=== PATIENT | female | born 1955 | race Two or more races ===

== ENCOUNTER → 2020-03-12 | Outpatient (CLI) | payer BC ==
[~2020-03-12] MED LIST: ALBU2.5V8 IH; FLUT1AER IH; LISI-334 PO
== END | disposition home or self-care (01) ==
LOC: LAB 08:45
PROVIDERS: ATTEND Registered Nurse
DX: Z11.59 Encounter for screening for other viral diseases (principal)
CPT/HCPCS: C9803; U0003

== ENCOUNTER → 2020-03-15 | Day surgery (SDC) | payer BC ==
[~2020-03-15] MED LIST changes: +IV RINGERS SOLUTION,LACTATED 1,000 ML IV SCH; +ONDANSETRON PF 4 MG/2 ML VIAL. IV PRN; +PROPOFOL 10,000 MCG/ML (20ML) VIAL IV ONE
[2020-03-15 13:35] VITALS: BP 129/84
--- NOTE | 2020-03-19 16:06 | PATHOLOGY ---
[facility] Accession Number: [id number] . 01 Material submitted: . sigmoid colon - SIGMOID POLYP . 01 Clinical history: . Screening; history of polyps . 02 Diagnosis: Colon biopsies, sigmoid polyp: - Segments of colonic mucosa containing a mucosal-associated lymphoid aggregate. (JPM:[place]; 03/19/2020) S 03/19/2020 1022 Local . 02 Comment: There are no adenomatous changes or evidence of malignancy. (JPM:[place]; 03/19/2020) . 02 Electronically signed: . Mark Upton MD, Pathologist NPI- [id number] . 01 Gross description: . The specimen is received in formalin, labeled "Yolis Crameran, sigmoid colon polyp". Received are two segments of pale babb soft tissue ranging in size from 0.3 to 0.5 cm in maximum dimensions. The specimen is submitted entirely in cassette A1. ([facility]; 03/16/2020) QA/QA 03/16/2020 1550 Local . 02 Pathologist provided ICD-10: Z12.11, Z86.010 . 02 CPT . 377699 Specimen Comment: A courtesy copy of this report has been sent to [phone] Specimen Comment: [phone] Specimen Comment: Report sent to / DR UNDERWOOD Performed at: 01 [facility] [address] [facility] [address], [place] [id number] MD Jasbir Hunt MD Phone: [phone] Performed at: 02 [facility] [address] [place], [place] [id number] MD Mark Upton MD Phone: [phone]
== END ==
LOC: SURG 11:45
PROVIDERS: ATTEND Internal Medicine Gastroenterology
DX: Z12.11 Encounter for screening for malignant neoplasm of colon (principal); K57.30 Diverticulosis of large intestine without perforation or abscess without bleeding; K63.89 Other specified diseases of intestine; K64.8 Other hemorrhoids; K64.4 Residual hemorrhoidal skin tags; G47.30 Sleep apnea, unspecified; J45.909 Unspecified asthma, uncomplicated; Z86.010 Personal history of colon polyps; Z98.890 Other specified postprocedural states
CPT/HCPCS: 45380; 88305; J2704; J7120